=== PATIENT | male | born 1995 | race Caucasian/White ===

== ENCOUNTER 2023-02-15 11:28 | Outpatient (REF) | payer SELFPAY ==
[2023-02-15 14:13] LABS: Alanine Aminotransferase 40 U/L (0-40); Albumin Level 4.7 g/dL (3.5-5.0); Alkaline Phosphatase 80 U/L (39-117); Aspartate Amino Transferase 36 U/L (5-37); Bilirubin Direct 0.3 mg/dL (0.0-0.5); Bilirubin Total 0.5 mg/dL (0.0-1.0); Cholesterol 206 mg/dL (<200); HDL Cholesterol 41 mg/dL (>40); LDL Cholesterol Calculated 151 mg/dL (<100); Total Protein 8.7 g/dL (6.5-8.0); Triglycerides 71 mg/dL (<150)
== END 2023-02-15 11:29 | disposition home or self-care (01) ==
LOC: HO.HMGCLDS 11:28
PROVIDERS: Visit Provider Dermatology
DX: L70.9 Acne, unspecified (principal); Z79.899 Other long term (current) drug therapy
CPT/HCPCS: 36415; 80061; 80076

== ENCOUNTER 2023-11-14 15:11 | Outpatient (REF) | payer OTHER, SELFPAY ==
[2023-11-14 16:59] LABS: Alanine Aminotransferase 16 U/L (0-40); Albumin Level 4.5 g/dL (3.5-5.0); Alkaline Phosphatase 79 U/L (39-117); Aspartate Amino Transferase 29 U/L (5-37); Bilirubin Direct < 0.2 mg/dL (0.0-0.5); Bilirubin Total 0.2 mg/dL (0.0-1.0); Cholesterol 183 mg/dL (<200); HDL Cholesterol 33 mg/dL (>40); LDL Cholesterol Calculated 110 mg/dL (<100); Total Protein 8.2 g/dL (6.5-8.0); Triglycerides 202 mg/dL (<150)
== END 2023-11-14 15:12 | disposition home or self-care (01) ==
LOC: HO.HMGCLDS 15:11
PROVIDERS: Visit Provider Dermatology
DX: Z79.899 Other long term (current) drug therapy (principal); L70.9 Acne, unspecified; L90.5 Scar conditions and fibrosis of skin
CPT/HCPCS: 36415; 80061; 80076

== ENCOUNTER 2023-12-21 15:05 | Outpatient (REF) | payer OTHER, SELFPAY ==
[2023-12-21 16:29] LABS: Alanine Aminotransferase 55 U/L (0-40); Albumin Level 4.6 g/dL (3.5-5.0); Alkaline Phosphatase 81 U/L (39-117); Aspartate Amino Transferase 43 U/L (5-37); Bilirubin Direct 0.1 mg/dL (0.0-0.5); Bilirubin Total 0.4 mg/dL (0.0-1.0); Cholesterol 197 mg/dL (<200); HDL Cholesterol 36 mg/dL (>40); LDL Cholesterol Calculated 145 mg/dL (<100); Total Protein 8.4 g/dL (6.5-8.0); Triglycerides 83 mg/dL (<150)
== END 2023-12-21 15:06 | disposition home or self-care (01) ==
LOC: HO.HMGCLDS 15:05
PROVIDERS: Visit Provider Dermatology
DX: L70.0 Acne vulgaris (principal); Z79.899 Other long term (current) drug therapy
CPT/HCPCS: 36415; 80061; 80076

== ENCOUNTER 2024-01-29 14:53 | Outpatient (REF) | payer OTHER, SELFPAY ==
[2024-01-29 16:57] LABS: Alanine Aminotransferase 42 U/L (0-40); Albumin Level 4.5 g/dL (3.5-5.0); Alkaline Phosphatase 75 U/L (39-117); Aspartate Amino Transferase 35 U/L (5-37); Bilirubin Direct < 0.2 mg/dL (0.0-0.5); Bilirubin Total 0.2 mg/dL (0.0-1.0); Cholesterol 207 mg/dL (<200); HDL Cholesterol 34 mg/dL (>40); LDL Cholesterol Calculated 135 mg/dL (<100); Total Protein 8.3 g/dL (6.5-8.0); Triglycerides 194 mg/dL (<150)
== END 2024-01-29 14:54 | disposition home or self-care (01) ==
LOC: HO.HMGCLR 14:53
PROVIDERS: Visit Provider Dermatology
DX: Z79.899 Other long term (current) drug therapy (principal); L90.5 Scar conditions and fibrosis of skin; L70.0 Acne vulgaris
CPT/HCPCS: 36415; 80061; 80076